=== PATIENT | female | born 1970 | race Caucasian/White ===

== ENCOUNTER 2016-05-28 19:19 | Inpatient (IN) | payer MEDICAID ==
[~2016-05-28] VITALS: Ht 154.9 cm; Wt 70.5 kg
[2016-05-28] MEDS ORDERED: DUONEB INH ONE ×3 (19:42→22:05)
[2016-05-28] MEDS ORDERED: METHYLPRED SOD SUCC 125 MG/2 ML VIAL ONE (22:06)
[2016-05-28 22:50] VITALS: RESP 20
[2016-05-29] VITALS (9 sets, daily range): BP systolic 122–168; RESP 12–20; TEMP 97.3–98; Ht 154.9 cm; Wt 70.5 kg
[2016-05-29] MEDS ORDERED: ACETAMINOPHEN 325 MG TAB ONE (00:07)
[2016-05-29] MEDS ORDERED: SALINE FLUSH 10 ML FLUSH PRN (00:10)
[2016-05-29] MEDS ORDERED: GLUCAGON 1 MG VIAL IM PRN (01:05)
[2016-05-29] MEDS ORDERED: DEXTROSE 50% SYRINGE 50 ML IV PRN (01:05)
[2016-05-29] MEDS: NEB-ALBUTEROL 2.5 MG/3 ML INH SCH ×3 (03:00→10:42)
[2016-05-29] MEDS: SODIUM CHLORIDE 0.9% FLUSH BAG 500 ML IV SCH (06:00)
[2016-05-29] MEDS ORDERED: NEB-ATROVENT INH SCH (07:00)
[2016-05-29] MEDS: METHYLPRED SOD SUCC 125 MG/2 ML VIAL IV SCH ×3 (07:27→17:26)
[2016-05-29] MEDS ORDERED: ENOXAPARIN 40 MG/0.4 ML SYR SUBQ SCH (09:00)
[2016-05-29] MEDS ORDERED: AZITHROMYCIN 500 MG in SODIUM CHLORIDE 0.9% 250 ML IV SCH (09:00)
[2016-05-29] MEDS: SALINE FLUSH 10 ML FLUSH SCH ×2 (09:53→21:11)
[2016-05-29] MEDS: LEVETIRACETAM 500 MG TAB PO SCH ×2 (09:53→20:38)
[2016-05-29] MEDS: LEVOFLOXACIN 750 MG/150 ML 150 ML IV SCH (09:55)
[2016-05-29] MEDS: NEB-BUDESONIDE 0.5 MG INH SCH ×2 (10:45→17:17)
[2016-05-29] MEDS: NEB-BROVANA 15 MCG/2 ML INH SCH ×2 (10:45→17:17)
[2016-05-29] MEDS ORDERED: NEB-XOPENEX 1.25 MG/3 ML INH PRN (10:45)
[2016-05-29] MEDS: DUONEB INH SCH ×4 (11:00→23:11)
[2016-05-29] MEDS: ACETAMINOPHEN 325 MG TAB PO PRN ×2 (13:40→20:40)
[2016-05-29] MEDS: SITAGLIPTIN 50 MG TAB PO SCH (13:41)
[2016-05-29] MEDS: NICOTINE 14 MG/24 HR TDSY TRANSDERM SCH (13:41)
[2016-05-29] MEDS: ASPIRIN EC 81 MG TAB PO SCH (13:41)
[2016-05-29] MEDS: DULoxetine 30 MG CAP PO SCH (13:41)
[2016-05-29] MEDS: ARIPiprazole 10 MG TABLET PO SCH (13:43)
[2016-05-29] MEDS: PREGABALIN 25 MG CAP PO SCH ×2 (16:28→20:39)
[2016-05-29] MEDS: NEB-NACL 3% 4 ML NEBU INH SCH ×2 (17:18→23:11)
[2016-05-29] MEDS: TRAZODONE 50 MG TAB PO SCH (20:38)
[2016-05-29] MEDS: METOPROLOL TART 25 MG TAB PO SCH (20:38)
[2016-05-29] MEDS: FAMOTIDINE 20 MG TAB PO SCH (20:38)
[2016-05-29] MEDS: TOPIRAMATE 25 MG TAB PO SCH (20:39)
[2016-05-29] MEDS: GUAIFENESIN ER 600 MG TABCR PO SCH (20:39)
[2016-05-30] VITALS (8 sets, daily range): BP systolic 93–134; RESP 16–26; TEMP 97.8–98.4
[2016-05-30] MEDS: METHYLPRED SOD SUCC 125 MG/2 ML VIAL IV SCH ×2 (00:04→06:07)
[2016-05-30] MEDS: DUONEB INH SCH ×5 (02:07→23:44)
[2016-05-30] MEDS: NEB-BUDESONIDE 0.5 MG INH SCH ×2 (05:25→17:25)
[2016-05-30] MEDS: NEB-BROVANA 15 MCG/2 ML INH SCH ×2 (05:25→17:25)
[2016-05-30] MEDS: NEB-NACL 3% 4 ML NEBU INH SCH ×4 (05:26→23:44)
[2016-05-30] MEDS: SODIUM CHLORIDE 0.9% FLUSH BAG 500 ML IV SCH (06:07)
[2016-05-30] MEDS: ACETAMINOPHEN 325 MG TAB PO PRN (06:08)
[2016-05-30] MEDS ORDERED: QUEtiapine 200 MG TAB PO SCH (09:00)
[2016-05-30] MEDS: LEVOFLOXACIN 750 MG/150 ML 150 ML IV SCH (10:03)
[2016-05-30] MEDS: SALINE FLUSH 10 ML FLUSH SCH ×2 (10:04→21:10)
[2016-05-30] MEDS: NICOTINE 14 MG/24 HR TDSY TRANSDERM SCH (10:05)
[2016-05-30] MEDS: PREGABALIN 25 MG CAP PO SCH (10:05)
[2016-05-30] MEDS: TOPIRAMATE 25 MG TAB PO SCH ×2 (10:05→21:10)
[2016-05-30] MEDS: METOPROLOL TART 25 MG TAB PO SCH ×2 (10:06→21:10)
[2016-05-30] MEDS: LEVETIRACETAM 500 MG TAB PO SCH ×2 (10:06→21:10)
[2016-05-30] MEDS: SITAGLIPTIN 50 MG TAB PO SCH (10:06)
[2016-05-30] MEDS: MULTIVITS/MINERALS (THERAGRAN M) TAB PO SCH (10:06)
[2016-05-30] MEDS: ASPIRIN EC 81 MG TAB PO SCH (10:06)
[2016-05-30] MEDS: GUAIFENESIN ER 600 MG TABCR PO SCH ×2 (10:06→21:10)
[2016-05-30] MEDS: DULoxetine 30 MG CAP PO SCH (10:07)
[2016-05-30] MEDS: ARIPiprazole 10 MG TABLET PO SCH (10:07)
[2016-05-30] MEDS ORDERED: DUONEB INH SCH (12:00)
[2016-05-30] MEDS: LEVEMIR INSULIN SUBQ SCH (12:33)
[2016-05-30] MEDS: METHYLPRED SOD SUCC 40 MG VIAL IV SCH (16:09)
[2016-05-30] MEDS: TRAZODONE 50 MG TAB PO SCH (21:10)
[2016-05-30] MEDS: FAMOTIDINE 20 MG TAB PO SCH (21:10)
[2016-05-31] VITALS (9 sets, daily range): BP systolic 110–151; RESP 18–25; TEMP 97.5–98.6
[2016-05-31] MEDS: METHYLPRED SOD SUCC 40 MG VIAL IV SCH ×3 (00:07→17:21)
[2016-05-31] MEDS: DUONEB INH SCH ×6 (03:00→23:22)
[2016-05-31] MEDS: NEB-BUDESONIDE 0.5 MG INH SCH ×2 (05:16→19:39)
[2016-05-31] MEDS: NEB-NACL 3% 4 ML NEBU INH SCH ×4 (05:16→23:21)
[2016-05-31] MEDS: SODIUM CHLORIDE 0.9% FLUSH BAG 500 ML IV SCH (05:17)
[2016-05-31] MEDS: NEB-BROVANA 15 MCG/2 ML INH SCH ×2 (05:17→19:39)
[2016-05-31] MEDS: TOPIRAMATE 25 MG TAB PO SCH ×2 (09:48→20:43)
[2016-05-31] MEDS: ARIPiprazole 10 MG TABLET PO SCH (09:48)
[2016-05-31] MEDS: MULTIVITS/MINERALS (THERAGRAN M) TAB PO SCH (09:48)
[2016-05-31] MEDS: DULoxetine 30 MG CAP PO SCH (09:48)
[2016-05-31] MEDS: SALINE FLUSH 10 ML FLUSH SCH ×2 (09:49→20:42)
[2016-05-31] MEDS: METOPROLOL TART 25 MG TAB PO SCH ×2 (09:49→20:43)
[2016-05-31] MEDS: GUAIFENESIN ER 600 MG TABCR PO SCH ×2 (09:49→20:43)
[2016-05-31] MEDS: ASPIRIN EC 81 MG TAB PO SCH (09:49)
[2016-05-31] MEDS: LEVETIRACETAM 500 MG TAB PO SCH ×2 (09:49→20:43)
[2016-05-31] MEDS: LEVEMIR INSULIN SUBQ SCH (09:50)
[2016-05-31] MEDS: NICOTINE 14 MG/24 HR TDSY TRANSDERM SCH (09:51)
[2016-05-31] MEDS: LEVOFLOXACIN 750 MG TAB PO SCH (12:31)
[2016-05-31] MEDS: TRAZODONE 50 MG TAB PO SCH (20:43)
[2016-05-31] MEDS: FAMOTIDINE 20 MG TAB PO SCH (20:43)
[2016-06-01] VITALS (8 sets, daily range): BP systolic 109–144; RESP 18–23; TEMP 97.2–98.4
[2016-06-01] MEDS: METHYLPRED SOD SUCC 40 MG VIAL IV SCH ×3 (00:59→16:03)
[2016-06-01] MEDS: DUONEB INH SCH ×6 (02:31→23:33)
[2016-06-01] MEDS: SODIUM CHLORIDE 0.9% FLUSH BAG 500 ML IV SCH (05:47)
[2016-06-01] MEDS: NEB-BUDESONIDE 0.5 MG INH SCH ×2 (06:15→20:06)
[2016-06-01] MEDS: NEB-BROVANA 15 MCG/2 ML INH SCH ×2 (06:15→20:07)
[2016-06-01] MEDS: NEB-NACL 3% 4 ML NEBU INH SCH ×4 (06:16→23:33)
[2016-06-01] MEDS: LEVETIRACETAM 500 MG TAB PO SCH ×2 (08:18→20:38)
[2016-06-01] MEDS: MODAFINIL 100 MG TAB PO SCH (08:18)
[2016-06-01] MEDS: ARIPiprazole 10 MG TABLET PO SCH (08:18)
[2016-06-01] MEDS: DULoxetine 30 MG CAP PO SCH (08:18)
[2016-06-01] MEDS: METOPROLOL TART 25 MG TAB PO SCH ×2 (08:18→20:38)
[2016-06-01] MEDS: LEVOFLOXACIN 750 MG TAB PO SCH (08:18)
[2016-06-01] MEDS: MULTIVITS/MINERALS (THERAGRAN M) TAB PO SCH (08:18)
[2016-06-01] MEDS: ASPIRIN EC 81 MG TAB PO SCH (08:19)
[2016-06-01] MEDS: GUAIFENESIN ER 600 MG TABCR PO SCH ×2 (08:19→20:38)
[2016-06-01] MEDS: TOPIRAMATE 25 MG TAB PO SCH ×2 (08:19→20:38)
[2016-06-01] MEDS: NICOTINE 14 MG/24 HR TDSY TRANSDERM SCH (08:20)
[2016-06-01] MEDS: SALINE FLUSH 10 ML FLUSH SCH ×2 (08:21→20:38)
[2016-06-01] MEDS: LEVEMIR INSULIN SUBQ SCH (08:21)
[2016-06-01] MEDS: ACETAMIN/BUTALB/CAFF PO PRN ×2 (09:43→16:59)
[2016-06-01] MEDS: ONDANSETRON 4 MG VIAL IV PUSH PRN (13:29)
[2016-06-01] MEDS ORDERED: MISSING DOSE XX ONE (18:30)
[2016-06-01] MEDS: SIMETHICONE 80 MG CHEW TAB PO PRN (19:02)
[2016-06-01] MEDS: TRAZODONE 50 MG TAB PO SCH (20:38)
[2016-06-01] MEDS: FAMOTIDINE 20 MG TAB PO SCH (20:38)
[2016-06-02] VITALS (8 sets, daily range): BP systolic 111–147; RESP 17–22; TEMP 96.5–98.3
[2016-06-02] MEDS: DUONEB INH SCH ×6 (03:11→23:46)
[2016-06-02] MEDS: ACETAMIN/BUTALB/CAFF PO PRN ×2 (05:42→13:13)
[2016-06-02] MEDS: SODIUM CHLORIDE 0.9% FLUSH BAG 500 ML IV SCH (05:42)
[2016-06-02] MEDS: NEB-BROVANA 15 MCG/2 ML INH SCH ×2 (07:57→19:33)
[2016-06-02] MEDS: NEB-BUDESONIDE 0.5 MG INH SCH ×2 (07:57→19:33)
[2016-06-02] MEDS: NEB-NACL 3% 4 ML NEBU INH SCH ×4 (07:57→23:46)
[2016-06-02] MEDS: MULTIVITS/MINERALS (THERAGRAN M) TAB PO SCH (08:08)
[2016-06-02] MEDS: ASPIRIN EC 81 MG TAB PO SCH (08:08)
[2016-06-02] MEDS: LEVETIRACETAM 500 MG TAB PO SCH ×2 (08:08→20:42)
[2016-06-02] MEDS: DULoxetine 30 MG CAP PO SCH (08:08)
[2016-06-02] MEDS: MODAFINIL 100 MG TAB PO SCH (08:08)
[2016-06-02] MEDS: SALINE FLUSH 10 ML FLUSH SCH ×2 (08:08→20:42)
[2016-06-02] MEDS: METOPROLOL TART 25 MG TAB PO SCH ×2 (08:09→20:42)
[2016-06-02] MEDS: PREDNISONE 50 MG TAB PO SCH (08:09)
[2016-06-02] MEDS: TOPIRAMATE 25 MG TAB PO SCH ×2 (08:09→20:42)
[2016-06-02] MEDS: LEVOFLOXACIN 750 MG TAB PO SCH (08:09)
[2016-06-02] MEDS: NICOTINE 14 MG/24 HR TDSY TRANSDERM SCH (08:09)
[2016-06-02] MEDS: GUAIFENESIN ER 600 MG TABCR PO SCH ×2 (08:09→20:42)
[2016-06-02] MEDS: ARIPiprazole 10 MG TABLET PO SCH (08:10)
[2016-06-02] MEDS: LEVEMIR INSULIN SUBQ SCH (08:10)
[2016-06-02] MEDS: SIMETHICONE 80 MG CHEW TAB PO PRN (10:37)
[2016-06-02] MEDS: ONDANSETRON 4 MG VIAL IV PUSH PRN ×2 (14:06→21:50)
[2016-06-02] MEDS: FAMOTIDINE 20 MG TAB PO SCH (20:42)
[2016-06-02] MEDS: TRAZODONE 50 MG TAB PO SCH (20:42)
[2016-06-03] VITALS (7 sets, daily range): BP systolic 110–121; RESP 16–22; TEMP 97.2–98.4
[2016-06-03] MEDS: DUONEB INH SCH ×6 (02:37→23:41)
[2016-06-03] MEDS: SODIUM CHLORIDE 0.9% FLUSH BAG 500 ML IV SCH (06:00)
[2016-06-03] MEDS: NEB-BROVANA 15 MCG/2 ML INH SCH ×2 (07:03→18:59)
[2016-06-03] MEDS: NEB-NACL 3% 4 ML NEBU INH SCH ×4 (07:03→23:41)
[2016-06-03] MEDS: NEB-BUDESONIDE 0.5 MG INH SCH ×2 (07:03→18:59)
[2016-06-03] MEDS: LEVEMIR INSULIN SUBQ SCH (08:19)
[2016-06-03] MEDS: SALINE FLUSH 10 ML FLUSH SCH ×2 (08:19→20:19)
[2016-06-03] MEDS: GUAIFENESIN ER 600 MG TABCR PO SCH ×2 (08:20→20:19)
[2016-06-03] MEDS: MULTIVITS/MINERALS (THERAGRAN M) TAB PO SCH (08:20)
[2016-06-03] MEDS: NICOTINE 14 MG/24 HR TDSY TRANSDERM SCH (08:20)
[2016-06-03] MEDS: TOPIRAMATE 25 MG TAB PO SCH ×2 (08:20→20:19)
[2016-06-03] MEDS: MODAFINIL 100 MG TAB PO SCH (08:20)
[2016-06-03] MEDS: LEVETIRACETAM 500 MG TAB PO SCH ×2 (08:21→20:19)
[2016-06-03] MEDS: ASPIRIN EC 81 MG TAB PO SCH (08:21)
[2016-06-03] MEDS: ARIPiprazole 10 MG TABLET PO SCH (08:21)
[2016-06-03] MEDS: LEVOFLOXACIN 750 MG TAB PO SCH (08:21)
[2016-06-03] MEDS: METOPROLOL TART 25 MG TAB PO SCH ×2 (08:21→20:19)
[2016-06-03] MEDS: DULoxetine 30 MG CAP PO SCH (08:21)
[2016-06-03] MEDS: PREDNISONE 50 MG TAB PO SCH (08:23)
[2016-06-03] MEDS: FAMOTIDINE 20 MG TAB PO SCH (20:19)
[2016-06-03] MEDS: TRAZODONE 50 MG TAB PO SCH (20:19)
[2016-06-03] MEDS ORDERED: MISSING DOSE XX ONE (20:25)
[2016-06-03] MEDS: Senna/DSS 50/8.6 MG TAB PO SCH (20:54)
[2016-06-04] VITALS (10 sets, daily range): BP systolic 112–129; RESP 12–77; TEMP 97.8–99.1
[2016-06-04] MEDS: SODIUM CHLORIDE 0.9% FLUSH BAG 500 ML IV SCH (05:36)
[2016-06-04] MEDS: DUONEB INH SCH ×3 (06:04→18:58)
[2016-06-04] MEDS: NEB-BROVANA 15 MCG/2 ML INH SCH ×2 (06:04→18:58)
[2016-06-04] MEDS: NEB-BUDESONIDE 0.5 MG INH SCH ×2 (06:04→18:58)
[2016-06-04] MEDS: NEB-NACL 3% 4 ML NEBU INH SCH ×4 (06:05→23:31)
[2016-06-04] MEDS: SALINE FLUSH 10 ML FLUSH SCH ×2 (09:15→20:37)
[2016-06-04] MEDS: NICOTINE 14 MG/24 HR TDSY TRANSDERM SCH (09:16)
[2016-06-04] MEDS: LEVEMIR INSULIN SUBQ SCH (09:16)
[2016-06-04] MEDS: PREDNISONE 50 MG TAB PO SCH (09:17)
[2016-06-04] MEDS: ARIPiprazole 10 MG TABLET PO SCH (09:17)
[2016-06-04] MEDS: LEVOFLOXACIN 750 MG TAB PO SCH (09:17)
[2016-06-04] MEDS: METOPROLOL TART 25 MG TAB PO SCH ×2 (09:17→20:37)
[2016-06-04] MEDS: LEVETIRACETAM 500 MG TAB PO SCH ×2 (09:17→20:37)
[2016-06-04] MEDS: GUAIFENESIN ER 600 MG TABCR PO SCH ×2 (09:17→20:37)
[2016-06-04] MEDS: ASPIRIN EC 81 MG TAB PO SCH (09:17)
[2016-06-04] MEDS: MULTIVITS/MINERALS (THERAGRAN M) TAB PO SCH (09:17)
[2016-06-04] MEDS: MODAFINIL 100 MG TAB PO SCH (09:17)
[2016-06-04] MEDS: TOPIRAMATE 25 MG TAB PO SCH ×2 (09:17→20:37)
[2016-06-04] MEDS: DULoxetine 30 MG CAP PO SCH (09:18)
[2016-06-04] MEDS ORDERED: MISSING DOSE XX ONE ×2 (09:35→10:45)
[2016-06-04] MEDS: Senna/DSS 50/8.6 MG TAB PO SCH ×2 (12:19→20:37)
[2016-06-04] MEDS: SIMETHICONE 80 MG CHEW TAB PO PRN (12:19)
[2016-06-04] MEDS: TRAZODONE 50 MG TAB PO SCH (20:37)
[2016-06-04] MEDS: FAMOTIDINE 20 MG TAB PO SCH (20:37)
[2016-06-05] VITALS (7 sets, daily range): BP systolic 111–137; RESP 18–23; TEMP 97.7–99.2
[2016-06-05] MEDS: SODIUM CHLORIDE 0.9% FLUSH BAG 500 ML IV SCH (05:31)
[2016-06-05] MEDS: NEB-BROVANA 15 MCG/2 ML INH SCH ×2 (07:45→20:16)
[2016-06-05] MEDS: DUONEB INH SCH ×3 (07:45→20:16)
[2016-06-05] MEDS: NEB-NACL 3% 4 ML NEBU INH SCH ×3 (07:45→20:16)
[2016-06-05] MEDS: NEB-BUDESONIDE 0.5 MG INH SCH ×2 (07:45→20:16)
[2016-06-05] MEDS: SALINE FLUSH 10 ML FLUSH SCH ×2 (08:14→19:50)
[2016-06-05] MEDS: LEVEMIR INSULIN SUBQ SCH (08:14)
[2016-06-05] MEDS: MODAFINIL 100 MG TAB PO SCH (08:15)
[2016-06-05] MEDS: PREDNISONE 50 MG TAB PO SCH (08:15)
[2016-06-05] MEDS: METOPROLOL TART 25 MG TAB PO SCH ×2 (08:15→21:02)
[2016-06-05] MEDS: TOPIRAMATE 25 MG TAB PO SCH ×2 (08:15→21:01)
[2016-06-05] MEDS: Senna/DSS 50/8.6 MG TAB PO SCH ×2 (08:15→21:02)
[2016-06-05] MEDS: GUAIFENESIN ER 600 MG TABCR PO SCH ×2 (08:15→21:02)
[2016-06-05] MEDS: ARIPiprazole 10 MG TABLET PO SCH (08:15)
[2016-06-05] MEDS: LEVETIRACETAM 500 MG TAB PO SCH ×2 (08:15→21:02)
[2016-06-05] MEDS: ASPIRIN EC 81 MG TAB PO SCH (08:15)
[2016-06-05] MEDS: DULoxetine 30 MG CAP PO SCH (08:15)
[2016-06-05] MEDS: MULTIVITS/MINERALS (THERAGRAN M) TAB PO SCH (08:16)
[2016-06-05] MEDS: NICOTINE 14 MG/24 HR TDSY TRANSDERM SCH (08:17)
[2016-06-05] MEDS: LEVOFLOXACIN 750 MG TAB PO SCH (08:26)
[2016-06-05] MEDS: SIMETHICONE 80 MG CHEW TAB PO PRN (17:51)
[2016-06-05] MEDS: TRAZODONE 50 MG TAB PO SCH (21:02)
[2016-06-05] MEDS: FAMOTIDINE 20 MG TAB PO SCH (21:02)
[2016-06-05] MEDS ORDERED: ZOLPIDEM 5 MG TAB PO ONE (22:23)
[2016-06-06] MEDS: NEB-NACL 3% 4 ML NEBU INH SCH ×3 (00:04→11:26)
[2016-06-06 03:55] VITALS: BP_SYST 119; RESP 18; TEMP 98
[2016-06-06] MEDS: SODIUM CHLORIDE 0.9% FLUSH BAG 500 ML IV SCH (06:00)
[2016-06-06 07:33] VITALS: BP_SYST 116; RESP 18; TEMP 98.7
[2016-06-06] MEDS: SALINE FLUSH 10 ML FLUSH SCH ×2 (07:56→19:35)
[2016-06-06] MEDS: NEB-BUDESONIDE 0.5 MG INH SCH ×2 (07:58→20:01)
[2016-06-06] MEDS: DUONEB INH SCH ×3 (07:58→20:01)
[2016-06-06] MEDS: NEB-BROVANA 15 MCG/2 ML INH SCH ×2 (07:58→20:01)
[2016-06-06] MEDS: GUAIFENESIN ER 600 MG TABCR PO SCH ×2 (08:17→20:25)
[2016-06-06] MEDS: PREDNISONE 20 MG TAB PO SCH (08:17)
[2016-06-06] MEDS: LEVETIRACETAM 500 MG TAB PO SCH ×2 (08:17→20:25)
[2016-06-06] MEDS: ASPIRIN EC 81 MG TAB PO SCH (08:18)
[2016-06-06] MEDS: MULTIVITS/MINERALS (THERAGRAN M) TAB PO SCH (08:18)
[2016-06-06] MEDS: METOPROLOL TART 25 MG TAB PO SCH ×2 (08:18→20:25)
[2016-06-06] MEDS: Senna/DSS 50/8.6 MG TAB PO SCH ×2 (08:18→20:25)
[2016-06-06] MEDS: ARIPiprazole 10 MG TABLET PO SCH (08:18)
[2016-06-06] MEDS: LEVOFLOXACIN 750 MG TAB PO SCH (08:18)
[2016-06-06] MEDS: DULoxetine 30 MG CAP PO SCH (08:18)
[2016-06-06] MEDS: TOPIRAMATE 25 MG TAB PO SCH ×2 (08:18→20:25)
[2016-06-06] MEDS: NICOTINE 14 MG/24 HR TDSY TRANSDERM SCH (08:19)
[2016-06-06] MEDS: LEVEMIR INSULIN SUBQ SCH (08:20)
[2016-06-06] MEDS: MODAFINIL 100 MG TAB PO SCH ×2 (08:20→12:17)
[2016-06-06 10:55] VITALS: BP_SYST 134; RESP 18; TEMP 98.6
[2016-06-06] MEDS ORDERED: MISSING DOSE XX ONE (12:10)
[2016-06-06] MEDS: GLIMEPIRIDE 2 MG TAB PO SCH (12:17)
[2016-06-06 15:21] VITALS: BP_SYST 124; RESP 18; TEMP 98.7
[2016-06-06 20:19] VITALS: BP_SYST 145; RESP 18; TEMP 97.7
[2016-06-06] MEDS: TRAZODONE 50 MG TAB PO SCH (20:25)
[2016-06-06] MEDS: FAMOTIDINE 20 MG TAB PO SCH (20:25)
[2016-06-06 23:39] VITALS: BP_SYST 119; RESP 18; TEMP 98.2
[2016-06-07 04:18] VITALS: BP_SYST 136; RESP 18; TEMP 98.3
[2016-06-07] MEDS: SODIUM CHLORIDE 0.9% FLUSH BAG 500 ML IV SCH (06:00)
[2016-06-07] MEDS: NEB-BUDESONIDE 0.5 MG INH SCH (07:23)
[2016-06-07] MEDS: DUONEB INH SCH ×2 (07:23→11:55)
[2016-06-07] MEDS: NEB-BROVANA 15 MCG/2 ML INH SCH (07:23)
[2016-06-07 07:24] VITALS: BP_SYST 111; RESP 18; TEMP 98.4
[2016-06-07] MEDS: SALINE FLUSH 10 ML FLUSH SCH (07:36)
[2016-06-07] MEDS: ASPIRIN EC 81 MG TAB PO SCH (08:35)
[2016-06-07] MEDS: TOPIRAMATE 25 MG TAB PO SCH (08:36)
[2016-06-07] MEDS: Senna/DSS 50/8.6 MG TAB PO SCH (08:36)
[2016-06-07] MEDS: PREDNISONE 20 MG TAB PO SCH (08:36)
[2016-06-07] MEDS: DULoxetine 30 MG CAP PO SCH (08:37)
[2016-06-07] MEDS: ARIPiprazole 10 MG TABLET PO SCH (08:37)
[2016-06-07] MEDS: GUAIFENESIN ER 600 MG TABCR PO SCH (08:37)
[2016-06-07] MEDS: LEVETIRACETAM 500 MG TAB PO SCH (08:37)
[2016-06-07] MEDS: MULTIVITS/MINERALS (THERAGRAN M) TAB PO SCH (08:38)
[2016-06-07] MEDS: METOPROLOL TART 25 MG TAB PO SCH (08:38)
[2016-06-07] MEDS: GLIMEPIRIDE 2 MG TAB PO SCH (08:38)
[2016-06-07] MEDS: NICOTINE 14 MG/24 HR TDSY TRANSDERM SCH (08:39)
[2016-06-07] MEDS: MODAFINIL 100 MG TAB PO SCH (08:42)
[2016-06-07 11:10] VITALS: BP_SYST 131; RESP 18; TEMP 98.3
[2016-06-07 15:09] VITALS: BP_SYST 139; RESP 18; TEMP 98.2
[2016-06-07 16:53] VITALS: BP_SYST 136; RESP 18; TEMP 98.3
[2016-06-07 17:07] VITALS: BP_SYST 136; RESP 18; TEMP 98.3
== END 2016-06-07 18:23 | disposition home or self-care (01) | DRG 871 ==
LOC: ENRESERVTM → ENRESERVDT → ER 19:19 → DELPENDDIS 05-29 00:09 → EMR 05-29 00:09 → ENPENDDIS 05-29 00:09 → ICU 05-29 02:04 → 4NT 05-29 16:04 → PCU2 05-30 14:41 → 3NT 06-01 15:30
PROVIDERS: ADMIT Internal Medicine; ATTEND Internal Medicine
DX: A41.9 Sepsis, unspecified organism (principal); J96.22 Acute and chronic respiratory failure with hypercapnia; J96.21 Acute and chronic respiratory failure with hypoxia; G93.41 Metabolic encephalopathy; I50.31 Acute diastolic (congestive) heart failure; J44.1 Chronic obstructive pulmonary disease with (acute) exacerbation; E11.9 Type 2 diabetes mellitus without complications; G40.909 Epilepsy, unspecified, not intractable, without status epilepticus; Z86.73 Personal history of transient ischemic attack (TIA), and cerebral infarction without residual deficits; Z91.14 Patient's other noncompliance with medication regimen; F32.9 Major depressive disorder, single episode, unspecified; F41.9 Anxiety disorder, unspecified; I11.0 Hypertensive heart disease with heart failure; Z79.52 Long term (current) use of systemic steroids; Z79.82 Long term (current) use of aspirin; K21.9 Gastro-esophageal reflux disease without esophagitis; Z85.528 Personal history of other malignant neoplasm of kidney; Z82.49 Family history of ischemic heart disease and other diseases of the circulatory system; Z79.51 Long term (current) use of inhaled steroids
CPT/HCPCS: 36415; 36600; 71010; 80048; 80053; 80177; 82140; 82553; 82803; 82947; 83036; 83735; 83880; 84145; 84484; 85007; 85025; 85027; 86738; 87299; 87804; 93005; 94640; 94660; 94762; 94799; 96374; 99223; 99232; 99233